=== PATIENT | male | born 1960 | race Caucasian/White ===

== ENCOUNTER → 2016-03-28 | Outpatient (CLI) | payer BC ==
[~2016-03-28] MED LIST: AMLO5TAB2 PO; LISI1TAB2 PO; LOVA20TA2 PO
--- OUTSIDE RECORDS SUMMARY | 2016-03-28 07:49 | XMS REPORT | Continuity of Care Document ---
Author Author [facility] Organization [facility] Address Unknown Phone Unavailable Care Team Providers Care Ux Visual Designer Name Role Phone Raf Lorenzana PCP Unavailable Source Comments Some departments are not documenting in the electronic medical record. If you do not see the information that you expected, contact Release of Information in the Health Information Management department at [phone] for further assistance in locating additional records.[facility] Active Allergies and Adverse Reactions Allergen Noted Date Severity Reactions Comments Keflex 12/08/2013 SEE COMMENTS "feel like I'm going to " Current Medications Prescription Sig. Disp. Refills Start End Date Status Date lovastatin(+) (MEVACOR) Take 20 mg by mouth Active 20 mg tablet daily. ALPRAZolam (XANAX) 1 mg Take 0.5 mg by mouth Active tablet three times daily as needed. ACETAMINOPHEN (TYLENOL Take by mouth as Needed. Active PO) amLODIPine (NORVASC) 10 Take 10 mg by mouth Active mg tablet daily. Active Problems Problem Noted Date Sinus node dysfunction (HCC) 12/09/2013 Overview: Positive GRIFFIN - the baseline tilt table test was normal. He was placed supine and then had NTG for provocation. Is placed upright again and within a matter of 3-4 minutes had syncope, a 19.5 second pause and a drop in his blood pressure. He was placed supine. His vital signs recovered but he had aa prolonged general recovery period. 12/09/13 Dual-chamber PPM placement Cardiac pacemaker 12/09/2013 Overview: 12/09/13 - Dual-chamber PPM implantation - Dr. Moncada Seasonal allergies 12/08/2013 Hypertension 12/08/2013 Near syncope 12/08/2013 Overview: 11/27/13: Consult with Dr. Villeda for Hx of near syncope with recent episode of worsening symptoms. Lisinopril-hctz d/c'd and benadryl placed on hold. Pt instructed to monitor BP daily. Echo and GRIFFIN ordered 12/03/13: Positive GRIFFIN ([facility]) with cardioinhibitory syncope. The patient had sinus pause for 19.5 seconds. Chest pain 12/08/2013 Overview: 12/02/13 Stress Echo ([facility]) - Excellent exercise tolerance. Achieved 96% of max expected heart rate. Negative exercise stress test by EKG criteria. Normal echocardiographic images at rest and with peak stress level with no ischemic changes. EF 60%. Mild mitral and tricuspid regurgitation. Estimated PAP of 15mmHg. H/O prostate cancer Overview: 01/2006 - Radical prostatectomy Hyperlipidemia Social History Tobacco Use Types Packs/Day Years Used Date Never Smoker Smokeless Tobacco: Never Used Alcohol Use Drinks/Week oz/Week Comments No Last Filed Vital Signs Vital Sign Reading Time Taken Blood Pressure 132/90 01/27/2014 7:37 AM RAIL GANG SUPERVISOR Pulse 80 01/27/2014 7:34 AM RAIL GANG SUPERVISOR Temperature 37.1 C (98.8 F) 12/10/2013 9:00 AM CDT Respiratory Rate - - Height 1.93 m (6' 4") 01/27/2014 7:34 AM RAIL GANG SUPERVISOR Weight 127.234 kg (280 lb 8 oz) 01/27/2014 7:34 AM RAIL GANG SUPERVISOR Body Mass Index 34.16 01/27/2014 7:34 AM RAIL GANG SUPERVISOR Oxygen Saturation 94% 12/10/2013 7:00 AM CDT Plan of Care Health Maintenance Due Date Last Done Comments Hepatitis C Screening 1960 Physical (Comprehensive) 1965 Exam Pertussis Vaccine 1969 Tetanus Vaccine 1975 Colorectal Cancer 2008 Screening Influenza Vaccine 11/25/2015 Results from Last 3 Months Not on file
--- NOTE | 2016-03-30 08:18 | ECHOCARDIOGRAPHY REPORT ---
PROCEDURE PHYSICIAN: TOMMIE NDIAYE DATE OF PROCEDURE: 03/28/2016 TWO DIMENSIONAL ECHOCARDIOGRAM REPORT PRIMARY PHYSICIAN: OTHER PHYSICIAN: REFERRING PHYSICIAN: Dr. Lorenzana ORDERING PHYSICIAN: INDICATION FOR THE PROCEDURE: Chest pain MEASUREMENTS DERIVED VALUES LV DIAMETER (LAX) NORMALS NORMALS Diastolic 4.8 (3.6-5.2) Eject. Fract. 60% (60%+/-6%) Systolic (2.3-3.9) Diastolic Vol. % Shortening (0.22-0.42) Systolic Vol. Aortic Root IVS THICKNESS Diastolic 1. (0.6-1.1) LVPW THICKNESS Diastolic 1. (0.6-1.1) LA DIAMETER Systolic 3.1 (2.1-3.7) FINDINGS: 1. Technical quality is good. 2. The left ventricle is normal in size with normal contractility. Systolic function appeared to be normal. Estimated ejection fraction 60%. 3. The left atrium is normal in size. No clot or thrombus were seen within the left atrium. 4. The right atrium and right ventricle are normal in size. No clot or thrombus were seen within the right side. 5. Mitral valve is normal in morphology with mild mitral regurgitation noted by color Doppler flow. No mitral valve prolapse. No mitral valve stenosis. 6. Aortic valve leaflets were not well visualized. There is no significant aortic stenosis or regurgitation was seen. 7. Tricuspid valve is normal in morphology with mild tricuspid regurgitation noted by color Doppler flow. Doppler across tricuspid valve estimated pulmonary artery pressure of 14+ right atrial pressure. 8. Pulmonic valve is functioning normally. 9. No pericardial effusion. CONCLUSION: 1. Normal left ventricular size and systolic function. Estimated ejection fraction 60%. 2. Mild mitral and tricuspid regurgitation. 3. Estimated pulmonary artery pressure of 20 mmHg. Job ID: [id number] Dictated Date: 03/29/2016 16:49:16 Gravel Wheeler Date: 03/30/2016 08:13:55 / chloé
== END ==
LOC: CARD 07:45
PROVIDERS: ATTEND Physician Assistant
DX: I10 Essential (primary) hypertension (principal); R55 Syncope and collapse; R00.2 Palpitations; R07.89 Other chest pain
CPT/HCPCS: 93306

== ENCOUNTER → 2016-05-05 | Outpatient (CLI) | payer BC ==
--- OUTSIDE RECORDS SUMMARY | 2016-05-05 07:58 | XMS REPORT | Continuity of Care Document ---
Author Author [facility] Organization [facility] Address Unknown Phone Unavailable Care Team Providers Care Link Wire Fabric Machine Tender Name Role Phone Raf Lorenzana PCP Unavailable Source Comments Some departments are not documenting in the electronic medical record. If you do not see the information that you expected, contact Release of Information in the Health Information Management department at [phone] for further assistance in locating additional records.[facility] Active Allergies and Adverse Reactions Allergen Noted [...] pain 12/08/2013 Overview: 12/02/13 Stress Echo ([facility]) - Excellent exercise tolerance. Achieved 96% of [...] Taken Blood Pressure 132/90 01/27/2014 7:37 AM STEEL ESTIMATOR Pulse 80 01/27/2014 7:34 AM STEEL ESTIMATOR Temperature 37.1 C (98.8 F) 12/10/2013 9:00 AM CDT Respiratory Rate - - Height 1.93 m (6' 4") 01/27/2014 7:34 AM STEEL ESTIMATOR Weight 127.234 kg (280 lb 8 oz) 01/27/2014 7:34 AM STEEL ESTIMATOR Body Mass Index 34.16 01/27/2014 7:34 AM STEEL ESTIMATOR Oxygen Saturation 94% 12/10/2013 7:00 AM CDT Plan of Care Health Maintenance Due Date Last Done Comments Hepatitis C Screening 1960 Physical (Comprehensive) 1965 Exam Pertussis Vaccine 1969 Tetanus Vaccine 1975 Colorectal Cancer 2008 Screening Influenza Vaccine 11/25/2015 Results from Last 3 Months Not on file
--- NOTE | 2016-05-05 11:14 | Diagnostic Imaging Report ---
PROCEDURE: CT head without contrast. TECHNIQUE: Multiple contiguous axial images were obtained through the brain without the use of intravenous contrast. INDICATION: Headache There are no prior studies available for comparison. There is no mass, shift of the midline or hemorrhage to suggest an acute intracranial abnormality. The normal tentorial blush is noted. The ventricles are not abnormally dilated. There is mild cortical atrophy present. The degree of atrophy is consistent with the patient's age. The bone windows show no evidence for a fracture or for a destructive lesion. There is a 1.9 x 2.0 CM retention cyst in the right maxillary sinus. The sinuses are otherwise clear, where visualized. IMPRESSION: 1. There is no evidence for an acute intracranial abnormality. 2. If clinical concern regarding an underlying abnormality persists, then MRI would be recommended for further study. Dictated by: Dictated on workstation # [id number]
== END ==
LOC: RAD 07:54
PROVIDERS: ATTEND Internal Medicine
DX: R51 Headache (principal)
CPT/HCPCS: 70450

== ENCOUNTER → 2017-09-12 | Outpatient (CLI) | payer BC ==
[~2017-09-12] MED LIST changes: +CATHETER FLUSH 10 ML SYR IV PRN; +REGADENOSON 0.4 MG/5 ML SYR (LEXISCAN) IV ONE
[2017-09-12 13:08] VITALS: BP 157/101
[2017-09-12 13:11] VITALS: BP 151/107
--- NOTE | 2017-09-13 00:24 | STRESS TEST ---
DATE OF SERVICE: 09/12/2017 LEXISCAN MYOVIEW STRESS TEST REPORT REFERRING PHYSICIAN: Dr. Lorenzana. Baseline heart rate is 83, baseline blood pressure 157/110. Baseline EKG is sinus rhythm with no ischemic changes. In summary, the patient received 10.09 mCi of technetium-99 Myoview and the resting images were obtained. Then, the patient received 0.4 mg of Lexiscan followed by 30.9 mCi of technetium-99 Myoview. Throughout the test, there were no EKG changes. The resting and stress images were reviewed and compared in the short axis, horizontal long axis, and vertical long axis views. Review of the images showed good radiotracer uptake with no significant ischemia or infarction on SPECT images. SSS is 1, SDS 1, TID value 1.05. On the gated images, the left ventricle appeared to be in normal size with normal contractility. Calculated ejection fraction 65%. CONCLUSION: 1. The patient tolerated Lexiscan well. 2. No ischemia or infarction on SPECT images. 3. Normal left ventricular size with normal contractility. Calculated ejection fraction 65%. Job ID: [id number] DocumentID: [id number] Dictated Date: 09/12/2017 17:46:51 Molder Feeder Date: 09/13/2017 00:24:04 Dictated By: TOMMIE NDIAYE MD
== END ==
LOC: CARD 11:47
PROVIDERS: ATTEND Internal Medicine Cardiovascular Disease
DX: R07.89 Other chest pain (principal); I10 Essential (primary) hypertension; R00.2 Palpitations; R55 Syncope and collapse; I07.1 Rheumatic tricuspid insufficiency
CPT/HCPCS: 78452; 93017; 93306

== ENCOUNTER 2018-02-01 08:50 | Outpatient (CLI) | payer BC ==
[~2018-02-01 08:50] MED LIST changes: -CATHETER FLUSH 10 ML SYR IV PRN; -REGADENOSON 0.4 MG/5 ML SYR (LEXISCAN) IV ONE
== END 2018-02-01 09:15 | disposition home or self-care (01) ==
LOC: SLEEP 08:50
PROVIDERS: ATTEND Nurse Practitioner Family
DX: G47.33 Obstructive sleep apnea (adult) (pediatric) (principal); G47.00 Insomnia, unspecified; J30.2 Other seasonal allergic rhinitis; R29.818 Other symptoms and signs involving the nervous system

== ENCOUNTER → 2020-01-12 | Outpatient (CLI) | payer BC ==
[~2020-01-12] VITALS: Ht 193 cm; Wt 146.0 kg
[~2020-01-12] MED LIST changes: +REGADENOSON 0.4 MG/5 ML SYR (LEXISCAN) IV ONE
[2020-01-12] MEDS: CATHETER FLUSH 10 ML SYR IV PRN ×2 (10:38→11:47)
[2020-01-12 11:47] VITALS: BP 147/93
--- NOTE | 2020-01-14 11:21 | Cardiology Stress Test Report ---
Stress Test Report Date of Procedure/Referring: Date of Procedure: Jan 12, 2020 Malathi Maharaj Admitting Physician Raf Lorenzana MD Baseline Blood Pressure: Blood Pressure Systolic: 147 Blood Pressure Diastolic: 93 Baseline Vitals Vital Signs Date Time Temp Pulse Resp B/P (MAP) Pulse Ox O2 Delivery O2 Flow Rate FiO2 01/12/20 11:47 72 147/93 (111) 99 Room Air Baseline EKG: Baseline EKG: normal sinus rhythm Summary After explaining the procedure to the patient, he signed a consent and then brought to the stress nuclear laboratory. Patient received 0.4 mg Lexiscan for stress test, ECG, heart rate and blood pressure were monitored continuously. Resting and stress dose of radio tracer were injected, imaging was acquired and reviewed in short axis, horizontal long axis and vertical long axis views. TID: 1.12 SSS: 3 SDS: 3 EF: 67 1. Patient tolerated Lexiscan well 2. Diaphragmatic attenuation with no significant ischemia or infarction on SPECT images 3. Normal left ventricular size, EF 67 percent TOMMIE NDIAYE MD Jan 14, 2020 11:21
== END ==
LOC: CARD 11:00
PROVIDERS: ATTEND Physician Assistant
DX: I49.5 Sick sinus syndrome (principal); I10 Essential (primary) hypertension
CPT/HCPCS: 78452; 93017; A9502